=== PATIENT | female | born 1945 | race Caucasian/White ===

== ENCOUNTER 2018-08-17 14:15 | Day surgery (SDC) | payer MEDICARE, BC ==
[2018-08-15 10:38] LABS: BASOPHILS # (AUTO) 0.1 X10'3 (0-0.2); EOSINOPHILS # (AUTO) 0.1 X10'3 (0-0.9); EOSINOPHILS % (AUTO) 1.7 % (0-6); HEMATOCRIT 32.2 % (35.0-45.0); HEMOGLOBIN 11.2 g/dl (12.0-16.0); LYMPHOCYTES # (AUTO) 0.9 X10'3 (1.1-4.8); LYMPHOCYTES % (AUTO) 14.9 % (21-51); MEAN CORPUSCULAR HEMOGLOBIN 38.5 PG (27.0-31.0); MEAN CORPUSCULAR HGB CONC 34.9 g/dL (33.0-36.5); MEAN CORPUSCULAR VOLUME 110.5 FL (78-98); MEAN PLATELET VOLUME 6.6 FL (7.4-10.4); MONOCYTES # (AUTO) 0.5 X10'3 (0-0.9); MONOCYTES % (AUTO) 8.8 % (2-12); NEUTROPHILS # (AUTO) 4.4 X10'3 (1.8-7.7); NEUTROPHILS % (AUTO) 73.6 % (42-75); PLATELET COUNT 176 X10'3 (140-440); RED BLOOD COUNT 2.91 X10'6 (4.20-5.60); RED CELL DISTRIBUTION WIDTH 14.3 % (11.5-14.5)
[2018-08-15 10:39] LABS: ANION GAP 9 (8-16); BLOOD UREA NITROGEN 20 MG/DL (7-18); BUN/CREATININE RATIO 18.3 (6.6-38.0); CHLORIDE 104 MMOL/L (99-107); CREATININE 1.09 MG/DL (0.40-0.90); GLUCOSE 112 MG/DL (70-104); POTASSIUM 3.6 MMOL/L (3.5-5.1); SODIUM 142 MMOL/L (135-145); TOTAL CARBON DIOXIDE 29.1 MMOL/L (24-32); eGFR 49 ML/MIN
[2018-08-15 10:47] LABS: PARTIAL THROMBOPLASTIN TIME 28 SECONDS (22-32); PROTHROMBIN TIME 10.7 SECONDS (9.0-12.0)
[2018-08-15 11:18] LABS: PLATELET ESTIMATE NORMAL; POLYCHROMASIA 1+
[~2018-08-17] VITALS: Ht 162.6 cm; Wt 92.2 kg
[2018-08-17] VITALS (7 sets, daily range): BP systolic 88–134; BP diastolic 36–57
[2018-08-17] MEDS ORDERED: normal saline 1000ml 1,000 ML IV SCH (14:40)
[2018-08-17] MEDS ORDERED: diphenhydrAMINE 25mg capsule PO ONE (14:40)
[2018-08-17] MEDS ORDERED: LORazepam 0.5 MG tablet PO ONE (14:40)
[2018-08-17] MEDS ORDERED: UMEC1DIS INH (14:57)
[2018-08-17] MEDS ORDERED: ALBU8.5H8 INH (14:57)
[2018-08-17] MEDS ORDERED: POTA10TA19 PO (14:57)
[2018-08-17] MEDS ORDERED: FURO-150 PO (14:57)
[2018-08-17] MEDS ORDERED: LIDOcaine 1% (10mg/ml)w/preservative injection 20ml MDV ONE (17:23)
[2018-08-17] MEDS ORDERED: iohexol 350MG/ML 100ml bottle IV ONE (17:23)
[2018-08-17] MEDS ORDERED: fentaNYL/PF 50MCG/1 ML 2ML syringe ONE (17:23)
[2018-08-17] MEDS ORDERED: midazolam 2 mg/2 ml injection ONE (17:23)
[2018-08-17] MEDS ORDERED: ondansetron/PF 4mg/2ml inj IV PRN (18:05)
[2018-08-17] MEDS ORDERED: OXAZEpam 15mg capsule PO PRN (18:05)
[2018-08-17] MEDS ORDERED: proCHLORperazine 10 MG/2 ml inj IV PRN (18:10)
[2018-08-17] MEDS ORDERED: HYDROcodone/acetaminophen 5mg/325mg tablet PO PRN (18:10)
[2018-08-17] MEDS ORDERED: HYDROcodone/acetaminophen 10/325mg tab PO PRN (18:10)
== END 2018-08-17 20:05 | disposition home or self-care (01) ==
LOC: SSTAY O 14:15
PROVIDERS: ATTEND Internal Medicine Interventional Cardiology
DX: I25.10 Atherosclerotic heart disease of native coronary artery without angina pectoris (principal); J44.9 Chronic obstructive pulmonary disease, unspecified; E11.9 Type 2 diabetes mellitus without complications; I50.9 Heart failure, unspecified; I11.0 Hypertensive heart disease with heart failure
CPT/HCPCS: 36415; 80048; 85025; 85610; 85730; 93458; 99152; 99153; A6257; J1644; J2001; J2250; J3010; J7030; Q0163; Q9967; A4620; C1769